=== PATIENT | male | born 1965 | race Caucasian/White ===

== ENCOUNTER 2020-02-15 10:46 | Observation (INO) | payer BC ==
[~2020-02-15] VITALS: Ht 167.6 cm; Wt 99.5 kg
[~2020-02-15 10:46] MED LIST: FURO20TA3 PO; HYDR-3165 PO; INSU100I13 SQ; OLME1TAB35 PO; SIMV80TA17 PO
[2020-02-15] MEDS ORDERED: IV NORMAL SALINE 1,000ML 1,000 ML IV ONE (11:00)
--- NOTE | 2020-02-15 11:17 | EKG ---
[address] [address] Test Date: 2020-02-15 Test Time: 11:12:46 Pat Name: DIMAS ARCE Department: Room: Gender: M Physical Fitness Teacher: ALCIRA : 1965 Requested By: RACHNA ARREOLA Order Number: [id number] Reading MD: Measurements Intervals [place] Rate: 68 P: -20 GA: 136 QRS: -13 QRSD: 96 T: 2 QT: 380 QTc: 409 Interpretive Statements SINUS RHYTHM LEFTWARD AXIS OTHERWISE NORMAL ECG RI6.02 No previous ECG available for comparison
--- NOTE | 2020-02-15 11:26 | PHYS DOC ---
Past History Past Medical History: No Pertinent History, High Cholesterol, Hypertension Past Surgical History: Gastric Bypass Alcohol Use: Occasionally Drug Use: None General Adult EDM: Chief Complaint: WEAKNESS/GENERALIZED HPI: HPI: Patient is a 55 year old male who presents with symptoms similar to a stroke. Reports 2 days of slurred speech, dizziness, and right hand cold/ numb. PCP instructed patient to come to the ED. Family history of CHF in brother and father. Denies chest pain, pleuritic chest pain, passing out. NIHSS of 0. Current Medications: Current Meds: Current Medications Medications (Trade) Dose Ordered Sig/Renetta Start Time Stop Time Status Last Admin Dose Admin Sodium Chloride 1,000 ml @ 1,000 mls/hr 1X ONCE 02/15/20 11:00 02/15/20 11:59 Allergies: Allergies: Allergies Coded Allergies Type Severity Reaction Last Updated Verified No Known Drug Allergies 03/03/14 No Current Patient Data: Vital Signs: Vital Signs Date Time Temp Pulse Resp B/P (MAP) Pulse Ox O2 Delivery O2 Flow Rate FiO2 02/15/20 10:54 97.8 82 16 147/93 (111) 97 Room Air EKG: EKG: @1112 sinus rhythm, no ST segment elevation, QRS 96 ms, QT/QTc 380/409 ms. Radiology/Procedures: Radiology/Procedures: PROCEDURE: PORTABLE CHEST 1V INDICATION: Reason: weakness / Spl. Instructions: / History: COMPARISON: None. FINDINGS: Single view of chest obtained. No focal airspace consolidation or pulmonary edema. There is some fullness of the bilateral pulmonary hilum. Cardiac silhouette unremarkable. IMPRESSION: * No definite focal airspace consolidation. Electronically signed by: Roosevelt Cifuentes MD (02/15/2020 11:32 AM) [id number] PROCEDURE: CT HEAD WO CONTRAST CT HEAD WITHOUT CONTRAST 02/15/2020 11:00 AM Indication: Reason: right arm weakness / Spl. Instructions: / History: Comparison: CT of the head without contrast December 18, 2015 Procedure: Multidetector CT imaging of the head was performed without the administration of contrast. Findings: There is no evidence of acute intracranial hemorrhage. Small hypodense focus is seen in the left sharon which could be artifactual or represent a small subacute infarct. Correlate with clinical symptoms and consider MRI for further evaluation as clinically indicated. No mass effect or midline shift is identified . The ventricles and basilar cisterns have an appropriate appearance. No abnormal extra-axial fluid collections are seen. No acute osseous changes are identified. Impression: Small area of hypodensity in the left sharon possibly artifactual versus a small subacute infarct. Recommend correlation with clinical findings, and if appropriate MRI for further characterization . CT DOSING PQRS STATEMENT: One or more of the following individualized dose reduction techniques were utilized for this examination: 1. Automated exposure control 2. Adjustment of the mA and/or kV according to patient size 3. Use of iterative reconstruction technique Findings called to the ordering physician at 11:40 AM 02/15/2020 Electronically signed by: Jefferson Scanlon MD (02/15/2020 11:41 AM) [id number] Heart Score: HEART Score for Chest Pain: HEART Score for Chest Pain Response (Comments) Value History Moderately Suspicious 1 ECG Normal 0 Age >45 - < 65 1 Risk Factors >3 Risk Factors or Hx CAD 2 Total 4 Risk Factors: Risk Factors: DM, Current or recent (<one month) smoker, HTN, HLP, family history of CAD, obesity. Risk Scores: Score 0 - 3: 2.5% MACE over next 6 weeks - Discharge Home Score 4 - 6: 20.3% MACE over next 6 weeks - Admit for Clinical Observation Score 7 - 10: 72.7% MACE over next 6 weeks - Early Invasive Strategies Course & Med Decision Making: Course & Med Decision Making Pertinent Labs and Imaging studies reviewed. (See chart for details) [] Dragon Disclaimer: Dragon Disclaimer: This electronic medical record was generated, in whole or in part, using a voice recognition dictation system. Departure Departure: Impression: Primary Impression: Right arm weakness Additional Impression: Right arm numbness Disposition: ADMITTED INPT THIS HOSP Admitting Physician: Denny Rod Condition: STABLE Referrals: SANDRA IVORY MD (PCP) NIHSS - ED NIH Stroke Scale: NIH Stroke Scale Response (Comments) Value Level of Consciousness: 0 Alert/Responsive 0 LOC Questions: 0 Answers both correctly 0 LOC Commands: 0 Performs both tasks 0 Best Gaze: 0 Normal 0 Visual: 0 No visual loss 0 Facial Palsy: 0 Normal, symmetrical 0 Motor - Left Arm 0 No drift 0 Motor - Right Arm 0 No drift 0 Motor - Left Leg 0 No drift 0 Motor: Right Leg 0 No drift 0 Limb Ataxia: 0 Absent 0 Sensory: 0 No loss 0 Best Language: 0 Normal 0 Dysathria: 0 Normal 0 Extinction and Inattention: 0 Normal 0 Total 0 ARREOLA,RACHNA Rosado DO Feb 15, 2020 11:26
--- NOTE | 2020-02-15 11:35 | RAD ---
INDICATION: Reason: weakness / Spl. Instructions: / History: COMPARISON: None. FINDINGS: Single view of chest obtained. No focal airspace consolidation or pulmonary edema. There is some fullness of the bilateral pulmonary hilum. Cardiac silhouette unremarkable. IMPRESSION: * No definite focal airspace consolidation. Electronically signed by: Roosevelt Cifuentes MD (02/15/2020 11:32 AM) [id number]
--- NOTE | 2020-02-15 11:44 | RAD ---
CT HEAD WITHOUT CONTRAST 02/15/2020 11:00 AM Indication: Reason: right arm weakness / Spl. Instructions: / History: Comparison: CT of the head without contrast December 18, 2015 Procedure: Multidetector CT imaging of the head was performed without the administration of contrast. Findings: There is no evidence of acute intracranial hemorrhage. Small hypodense focus is seen in the left sharon which could be artifactual or represent a small subacute infarct. Correlate with clinical symptoms and consider MRI for further evaluation as clinically indicated. No mass effect or midline shift is identified . The ventricles and basilar cisterns have an appropriate appearance. No abnormal extra-axial fluid collections are seen. No acute osseous changes are identified. Impression: Small area of hypodensity in the left sharon possibly artifactual versus a small subacute infarct. Recommend correlation with clinical findings, and if appropriate MRI for further characterization . CT DOSING PQRS STATEMENT: One or more of the following individualized dose reduction techniques were utilized for this examination: 1. Automated exposure control 2. Adjustment of the mA and/or kV according to patient size 3. Use of iterative reconstruction technique Findings called to the ordering physician at 11:40 AM 02/15/2020 Electronically signed by: Jefferson Scanlon MD (02/15/2020 11:41 AM) [id number]
[2020-02-15 12:05] LABS: BASO % 1 % (0-3); EOS # 0.1 x10^3/uL (0.0-0.7); EOS % 1 % (0-3); HEMATOCRIT 47.6 % (39.0-53.0); HEMOGLOBIN 15.9 g/dL (13.0-17.5); LYMPH # 1.7 x10^3/uL (1.0-4.8); LYMPH % 21 % (24-48); MEAN CORPUSCULAR HEMOGLOBIN 32 pg (25-35); MEAN CORPUSCULAR HGB CONC 33 g/dL (31-37); MEAN CORPUSCULAR VOLUME 95 fL (79-100); MONO # 0.6 x10^3/uL (0.0-1.1); MONO % 7 % (0-9); NEUT # 5.7 x10^3uL (1.8-7.7); NEUT % 71 % (31-73); PLATELET COUNT 234 x10^3/uL (140-400); RED BLOOD COUNT 5.04 x10^6/uL (4.30-5.70)
[2020-02-15 12:18] LABS: CALCIUM 9.2 mg/dL (8.5-10.1); CREATININE 1.1 mg/dL (0.7-1.3); GFR 69.2
[2020-02-15 12:19] LABS: POTASSIUM 4.4 mmol/L (3.5-5.1)
[2020-02-15 12:33] LABS: ALBUMIN 4.1 g/dL (3.4-5.0); ALBUMIN/GLOBULIN RATIO 1.2 (1.0-1.7); MAGNESIUM 1.9 mg/dL (1.8-2.4); TOTAL BILIRUBIN 0.4 mg/dL (0.2-1.0); TOTAL PROTEIN 7.5 g/dL (6.4-8.2)
[2020-02-15] MEDS ORDERED: ASPIRIN ENTERIC COATED 325 MG TABLET.DR. PO ONE (13:00)
[2020-02-15 13:01] LABS: BACTERIA,URINE 0 /HPF (0-FEW); BILIRUBIN,URINE NEG (NEG); CLARITY,URINE CLEAR; COLOR,URINE YELLOW; GLUCOSE,URINE NEG (NEG); HYALINE CASTS, URINE OCC /HPF; NITRITE,URINE NEG (NEG); RBC,URINE RARE /HPF (0-2); SQUAMOUS EPITHELIAL CELL,UR OCC /LPF; UROBILINOGEN,URINE 0.2 mg/dL (0.2 mg/dL); WBC,URINE OCC /HPF (0-4)
[2020-02-15] MEDS ORDERED: ONDANSETRON PF 4 MG/2 ML VIAL. IVP PRN (13:15)
[2020-02-15 15:13] VITALS: BP 155/92
[2020-02-15] MEDS ORDERED: LISI1TAB20 PO (16:33)
[2020-02-15] MEDS ORDERED: LISD30CA5 PO (16:33)
[2020-02-15] MEDS ORDERED: SERT50TA8 PO (16:33)
--- NOTE | 2020-02-15 16:56 | HP ---
ADMIT DATE: 02/15/2020 HISTORY OF PRESENT ILLNESS: The patient is a 55-year-old male patient who presented to the Emergency Room with a complaint of generalized weakness. He reported 2 days' history of slurring of speech, dizziness and right hand cold numbness. He was instructed by his primary care physician to come to the Emergency Department where he was extensively investigated; however, the patient denied any chest pain, denied any syncopal episode. His NIH score system was on a 0. He was extensively investigated and has had a chest x-ray, which was unremarkable with no definite focal airspace consolidation. He had a CT scan of the head without contrast, which basically showed that there is no evidence of acute intracranial hemorrhage, small hypodense focus is seen in the left sharon, which could be artifactual or represents a small subacute infarct, to consider MRI for further evaluation as clinically indicated. No mass effect or midline shift is identified. The ventricles and basilar cisterns have an appropriate appearance. No abnormal extraaxial fluid collection is seen. No acute osseous changes are identified. The patient was admitted for further evaluation and to check his lipid profile as well as hemoglobin A1c and carotid Doppler ultrasound to consult the neurologist. PAST MEDICAL HISTORY: Significant for hypertension. He apparently was noted to have type 2 diabetes and hyperlipidemia as well as obstructive sleep apnea and morbid obesity. He underwent gastric bypass surgery and according to him, he lost weight and he is no longer on hypoglycemic agent or cholesterol lowering agent. He is not also on any CPAP after he lost his weight. PAST SURGICAL HISTORY: Significant for gastric bypass surgery. He has also had a fall in 1998 that resulted in fracture of the skull, fracture of T11 and T12, fracture of the left scapula, fracture of the left clavicle that all healed without intervention. He developed what seemed to be scalp abscess that required incision and drainage. ALLERGIES: He has no known drug allergies. MEDICATIONS: He is currently on following medications: He is on simvastatin 80 mg at bedtime. He is on olmesartan and amlodipine and hydrochlorothiazide 1 tablet once a day, hydrocodone/APAP 5/325 one tablet every 6 hours, furosemide 20 mg once a day. He is on Lantus SoloSTAR 100 units subcutaneously. He is apparently only on lisinopril/hydrochlorothiazide. He is on sertraline 50 mg daily and Vyvanse 30 mg capsule once a day. He is no longer taking his olmesartan/amlodipine. He is not on hydrocodone, furosemide or insulin according to him. FAMILY HISTORY: He has 2 older sisters that are alive and healthy. One sister committing suicide. One brother at age of 56 because of myocardial infarction. His father at the age of 41 because of myocardial infarction after he underwent coronary artery bypass graft surgery. His mother at the age of 73 because of metastatic melanoma. SOCIAL HISTORY: He is , has 1 biological son and 1 stepdaughter. He never smoked. Drinks alcohol once or twice a week. He does not use any drugs. He is in the [employer] and air [employer]. REVIEW OF SYSTEMS: The patient denied any blurring of vision, cataract, glaucoma or macular degeneration. Denied any earache, tinnitus or sensorineural deafness. Denied any nosebleeds, stuffy nose or postnasal drip. Denied any sore throat, sore tongue, toothache, hoarseness of voice or difficulty swallowing. Denied any nausea, vomiting, diarrhea or constipation. Denied any hematemesis, melena or hematochezia. Denied any dysuria, frequency or hematuria. Denied any chest pain, shortness of breath, orthopnea or paroxysmal nocturnal dyspnea. Denied any dizziness, lightheadedness or vertigo. He continued to have numbness in his hand and mild slurring of his speech according to him. PHYSICAL EXAMINATION: GENERAL: On arrival to the Emergency Room, he looked well and was clearly in no apparent respiratory distress. No pallor, jaundice, cyanosis or thyromegaly. No jugular venous distention. No lower limb edema. VITAL SIGNS: His heart rate was 61, blood pressure was 155/92, temperature was 97.4, respiratory rate was 20, and oxygen saturation was 95% on room air. HEAD, EYES, EARS, NOSE AND THROAT: Showed normocephalic, atraumatic. NECK: Supple. HEART: Showed normal first and second heart sounds. No gallop, rub or murmur. CHEST: Clear to auscultation. No crepitation or rhonchi. ABDOMEN: Distended, soft, nontender. No guarding or rigidity. No organomegaly. All hernial orifices intact. Bowel sounds normal. NEUROLOGIC: He is awake, alert, responding appropriately. All his cranial nerves are grossly intact. I did have a detailed neurological, but I could not really see any neurological deficit. LABORATORY DATA: His lab work on arrival showed a white cell count of 8000, hemoglobin 16, hematocrit 48, MCV 95, and platelet count of 234,000. His chemistry showed a serum sodium 138, potassium 4.4, chloride 104, bicarbonate 24, anion gap of 10, BUN 33, creatinine 1.1, estimated GFR was 69 mL per minute. His glucose 112, calcium was 9.2, magnesium was 1.9. Total bilirubin, AST, ALT were normal. Alkaline phosphatase slightly elevated. His first set of cardiac enzymes showed troponin to be less than 0.017. His total protein was 7.5, albumin was 4.1. His prothrombin time, INR and aPTT were normal. Urinalysis was essentially unremarkable. The chest x-ray showed no definite focal airspace consolidation and his CT scan of the head showed small area of hypodensity in the left sharon, possibly artifactual versus a small subacute infarct. Recommend correlation with clinical setting and if appropriate, MRI for further characterization. ASSESSMENT AND PLAN: The patient was admitted. We will continue his medication. I will arrange to check his fasting lipid profile, bilateral carotid Doppler ultrasound and we will consult Dr. Mcdonough for further evaluation and treatment. I would also check his blood sugar or hemoglobin A1c. LIZ HERRERA MD DR: SHARI/marquis JOB#: [id number] / [id number]
[2020-02-15] MEDS ORDERED: FLU VACC QS 2020-21(6MOS+)/PF 0.5 ML SYRINGE. VAX IM ONE (17:00)
[2020-02-15 19:44] VITALS: BP 104/65
[2020-02-15 22:47] VITALS: BP 122/75
[2020-02-16 05:09] VITALS: BP 103/66
[2020-02-16] MEDS ORDERED: NON FORMULARY ITEM (Lisdexamfetamine Dimesylate (Vyvanse) 1 CAP) PO SCH (09:00)
[2020-02-16] MEDS ORDERED: hydroCHLOROthiazide 25 MG TABLET PO SCH (09:00)
[2020-02-16] MEDS ORDERED: LISINOPRIL 20 MG TABLET PO SCH (09:00)
[2020-02-16] MEDS ORDERED: FLU VACC QS 2020-21(6MOS+)/PF 0.5 ML SYRINGE. VAX IM ONE (09:00)
[2020-02-16] MEDS ORDERED: SERTRALINE 50 MG TABLET. PO SCH (09:00)
[2020-02-16 10:57] VITALS: BP 138/84
--- NOTE | 2020-02-16 11:01 | RAD ---
Bilateral carotid arterial duplex study 02/16/2020 CLINICAL HISTORY: Slurred speech. Right-sided weakness. TIA. Hypertension. TECHNIQUE: Using a combination of real-time ultrasound imaging and color-flow and pulse Doppler imaging techniques, duplex evaluation of the common carotid arteries, carotid bifurcations and internal carotid arteries along with the vertebral arteries within the neck was performed. Multiple images were obtained. Stenosis calculations for carotid ultrasound are based on validated velocity measurements which are noted to correlate with the NASCET methodology. FINDINGS: Mild atheromatous/atherosclerotic plaque formation is seen involving both carotid bifurcations and proximal internal carotid arteries bilaterally. The peak systolic velocities are not elevated. No hemodynamically significant stenosis is seen. Both vertebral arteries demonstrate normal antegrade flow. IMPRESSION: Mild atheromatous/atherosclerotic plaque formation is seen involving both carotid bifurcations. No hemodynamically significant stenosis or area of occlusion is seen. Electronically signed by: Amarjit Nevarez MD (02/16/2020 10:56 AM) [id number]
--- NOTE | 2020-02-16 22:05 | DS ---
DATE OF DISCHARGE: 02/16/2020 HOSPITAL COURSE: The patient is a 55-year-old male patient who was admitted yesterday with slurring of speech and tingling and numbness in his right upper extremity as well as dizziness. He was extensively investigated and his CT scan of the head was unremarkable. He has had a venous Doppler ultrasound, which showed mild atherosclerotic plaque formation is seen involving both carotid bifurcation. No hemodynamically significant stenosis or areas of occlusion is seen. He was seen by Dr. Mcdonough and who recommended outpatient nerve conduction study in his office and as he has remained hemodynamically stable, has had no further slurring of speech and has been up and about and a decision was made to discharge him home to follow with Dr. Mcdonough as an outpatient. PHYSICAL EXAMINATION: GENERAL: When I saw him this afternoon, he was sitting on the edge of the bed comfortably, in no apparent distress. No pallor, jaundice, cyanosis or thyromegaly. No jugular venous distention. No limb edema. VITAL SIGNS: His heart rate was 85, blood pressure was 138/84, temperature was 97.7, respiratory rate 20 and oxygen saturation was 98%. HEAD, EYES, EARS, NOSE AND THROAT: Showed normocephalic, atraumatic. NECK: Supple. CARDIAC: Normal first and second heart sounds with no gallop or murmur. CHEST: Clear to auscultation. No crepitation or rhonchi. ABDOMEN: Distended, soft, nontender. NEUROLOGIC: He was grossly intact. LABORATORY DATA: He has 3 sets of cardiac enzymes that all negative. All his lab works were within acceptable range. DISCHARGE MEDICATIONS: He was discharged home to continue on furosemide 20 mg once a day, hydrocodone/APAP 5/325 one tablet every 6 hours, Lantus insulin. He was actually only on lisinopril/hydrochlorothiazide and sertraline 50 mg once a day and he is also on Vyvanse 30 mg capsules daily. He is no longer on any insulin or pain medication or Lasix. FINAL DISCHARGE DIAGNOSES: 1. Slurring of speech and possible left pontine infarct. 2. Tingling and numbness in his right upper extremity, likely due to cervical radiculopathy, hypertension, hyperlipidemia and type 2 diabetes mellitus that all have resolved after he had had gastric bypass surgery. Also, his obstructive sleep apnea has resolved after his gastric bypass surgery. LIZ HERRERA MD DR: SHARI/marquis JOB#: [id number] / [id number]
--- NOTE | 2020-02-17 02:24 | CONS ---
DATE OF CONSULTATION: 02/16/2020 NEUROLOGIC CONSULTATION REFERRING PHYSICIAN: Dr. Rod. REASON FOR CONSULTATION: Rule out stroke. HISTORY OF PRESENT ILLNESS: This is a 55-year-old right-handed male who was admitted through Emergency Room on 02/15/2020 after he presented with 1-day history of dizziness, confusion, unsteady gait, numbness and tingling of the hands, and weakness of the right upper and lower extremities. According to the patient, he woke up this morning on 02/15/2020 to go to bathroom and he was unsteady and dizzy with right-sided weakness and worsening of numbness and paresthesia of the hands. 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 Therefore, he called his office and checked with his primary care physician who recommended him to go to the Emergency Room. On arrival to the Emergency Room, he was alert and oriented. Nonenhanced head CT scan revealed possible hypodense area confined to the sharon. According to the patient, his symptoms have improved overnight and currently he denies headaches, chest pain, shortness of breath or palpitation, dysarthria, dysphagia, weakness or vertigo, but he continues to have numbness and paresthesia of both hands. PAST MEDICAL HISTORY: Significant for morbid obesity, required gastric bypass surgery several years ago, history of hypertension, hyperlipidemia, and questionable of diabetes mellitus type 2; however, the patient denies being diabetic; obstructive sleep apnea, require CPAP. PAST SURGICAL HISTORY: Significant for bypass, gastric surgery. History of a fall from roof in 1998, resulted in skull fracture, fracture of T11 and T12, fracture of left scapula and left clavicle, but he did not require any surgery. FAMILY HISTORY: One sister committed suicide. One brother at age of 56 because of myocardial infarction. His father at age of 41 and had myocardial infarction and had coronary artery bypass graft. His mother at the age of 73 because of metastatic melanoma. SOCIAL HISTORY: The patient is . He has 2 children. He denies smoking, but he drinks alcohol occasionally. He denies illegal drug use. CURRENT HOME MEDICATIONS: Include lisinopril, sertraline, Vyvanse for eating disorder. ALLERGIES: No known drug allergies. REVIEW OF SYSTEMS: A 10-point review of system was performed as mentioned above in history of present illness, otherwise unremarkable including numbness and paresthesia of the upper extremities. PHYSICAL EXAMINATION: GENERAL: Well-developed, well-nourished, not in acute distress. He weighs 99.5 kilos. HEENT: Normocephalic, atraumatic, otherwise unremarkable. NECK: Supple. Negative for carotid bruit, lymphadenopathy or thyromegaly. LUNGS: Clear to A and P. CARDIOVASCULAR: Regular rate and rhythm, normal S1, S2. There is no S3, S4 or murmur. ABDOMEN: Soft. Bowel sounds positive. EXTREMITIES: Negative for cyanosis, clubbing or edema. NEUROLOGICAL: Mental status: The patient is alert and oriented x 3. The speech is fluent. There is no language dysfunction. Memory, judgment, and abstracting thinking are normal. The patient denies hallucination or delusion. CRANIAL NERVES: Visual cerna are full. The pupils are reactive to light and accommodation. The extraocular movements are intact. There is no nystagmus. There is no facial motor or sensory deficit. Hearing is intact bilaterally. The palate is elevated symmetrically. Sternocleidomastoid muscles are powerful bilaterally. The patient shrugs his shoulders symmetrically and protrudes his tongue in the midline without fasciculation or atrophy. MOTOR EXAMINATION: No focal muscle bulk was seen. The tone is normal. The strength is 5/5 throughout. Sensory examination revealed normal pinprick, light touch, vibratory and position senses. Deep tendon reflexes were symmetric and active without pathologic responses. Gait and coordination are normal. Tunnel's and Phalen's signs were present over the median nerve at the wrist bilaterally. IMPRESSION: 1. New onset of dizziness, generalized weakness, unsteady gait, resolved within 24 hours, rule out transient ischemic attack. 2. Chronic numbness and paresthesia of the hands, rule out entrapment neuropathy at the wrist -- carpal tunnel versus cervical radiculopathy. 3. Multiple medical problems include hypertension, hyperlipidemia, questionable diabetes mellitus, history of morbid obesity, required gastric bypass surgery, questionable subacute or acute infarct in the sharon versus artifact. However, the patient does not have evidence of any focal neurological deficits. History of obstructive sleep apnea, require CPAP. RECOMMENDATIONS: 1. We will continue with current management initiated by Dr. Rod. 2. We will arrange for EMG/NCS of the upper extremities to rule out entrapment neuropathy versus cervical radiculopathy. 3. Carotid Doppler study. 4. Aspirin 81 mg p.o. daily. M Majo RYAN MD DR: JONNIE/marquis JOB#: [id number] / [id number]
[2020-02-17 04:00] LABS: HEMOGLOBIN A1C 5.3 % (4.8-5.6)
[2020-02-17] MEDS ORDERED: ASPIRIN CHEWABLE 81 MG TABLET. PO SCH (08:00)
== END 2020-02-16 14:40 | disposition home or self-care (01) ==
LOC: ER 10:46 → INTOOBSV 14:40 → 1 SOUTH 14:40 → ER 14:58
PROVIDERS: ADMIT Internal Medicine; ATTEND Internal Medicine
DX: R47.81 Slurred speech (principal); R20.2 Paresthesia of skin; R53.1 Weakness; I10 Essential (primary) hypertension; E11.9 Type 2 diabetes mellitus without complications; G47.33 Obstructive sleep apnea (adult) (pediatric); M54.12 Radiculopathy, cervical region; E78.5 Hyperlipidemia, unspecified; E78.00 Pure hypercholesterolemia, unspecified; E66.01 Morbid (severe) obesity due to excess calories; Z98.84 Bariatric surgery status; Z79.899 Other long term (current) drug therapy; Z23 Encounter for immunization; Z68.35 Body mass index [BMI] 35.0-35.9, adult
CPT/HCPCS: 36415; 70450; 71045; 80053; 80061; 81001; 82553; 83036; 83735; 83880; 84484; 85025; 85610; 85730; 90471; 90686; 93005; 93880; 96360; 97165; 97530; 99285; G0378; J7030; 96361; G0379

== ENCOUNTER → 2020-02-23 | Outpatient (CLI) | payer BC ==
[2020-02-16 10:57] VITALS: BP 138/84
[~2020-02-23] MED LIST changes: +LISD30CA5 PO; +LISI1TAB20 PO; +SERT50TA8 PO
--- NOTE | 2020-02-23 15:13 | RAD ---
4 view cervical spine 02/23/2020 Comparison Study: Cervical spine CT December 18, 2015 Technique: Multidetector CT imaging of the cervical spine was obtained without administration of cont rast. Findings: There is no evidence of acute fracture or alignment abnormality of the cervical spine. Vert ebral body heights are maintained. Degenerative disc space narrowing noted C5-C7. Facet joints. Remai n aligned. No prevertebral soft tissue thickening. The atlantoaxial articulation appears to remain in tact. IMPRESSION: Degenerative changes of the cervical spine without evidence of acute cardiac pulmonary pr ocess Electronically signed by: Jefferson Scanlon MD (02/23/2020 3:11 PM) [id number]
== END ==
LOC: DXRAD 13:04
PROVIDERS: ATTEND Psychiatry & Neurology Neurology
DX: M47.22 Other spondylosis with radiculopathy, cervical region (principal); M48.02 Spinal stenosis, cervical region
CPT/HCPCS: 72040